=== PATIENT | male | born 1950 | race Caucasian/White ===

== ENCOUNTER 2016-07-12 19:07 | Emergency (ER) | payer MEDICAID ==
[~2016-07-12] VITALS: Ht 185.4 cm; Wt 103.4 kg
[2016-07-12 19:25] VITALS: BP 149/96
== END 2016-07-12 21:21 | disposition home or self-care (01) ==
LOC: ER 19:07
DX: M54.2 Cervicalgia (principal); M25.512 Pain in left shoulder; M54.9 Dorsalgia, unspecified; M25.511 Pain in right shoulder; E11.9 Type 2 diabetes mellitus without complications; I10 Essential (primary) hypertension; V89.2XXA Person injured in unspecified motor-vehicle accident, traffic, initial encounter; Y93.89 Activity, other specified; Y92.89 Other specified places as the place of occurrence of the external cause; Y99.9 Unspecified external cause status
CPT/HCPCS: 72100; 72125; 73030 ×2; 99284; A4606; Z7610

== ENCOUNTER 2016-10-14 20:42 | Emergency (ER) | payer MEDICAID, OTHER ==
[~2016-10-14] VITALS: Ht 177.8 cm; Wt 77.1 kg
[2016-10-14 21:15] VITALS: BP 127/75
--- NOTE | 2016-10-14 21:16 | NUR ---
bib self, cc: left knee pain and flu like symptoms, patient is verbally responsive, a/o x4, able to ambulate to bed, md at bedside upon arrival, will continue to monitor closely.
[2016-10-14 21:23] LABS: BASOPHILS # (AUTO) 0.1 /CMM (0.0-0.2); BASOPHILS % (AUTO) 0.9 % (0.0-2.0); EOSINOPHILS # (AUTO) 0.1 /CMM (0.0-0.7); EOSINOPHILS % (AUTO) 1.1 % (0.0-6.0); HEMATOCRIT 34 % (39-51); HEMOGLOBIN 10.8 g/dL (13.5-17.5); LYMPHOCYTES # (AUTO) 2.2 /CMM (0.8-4.8); LYMPHOCYTES % (AUTO) 20.8 % (20.0-44.0); MEAN CORPUSCULAR HEMOGLOBIN 23 PG (26.0-33.0); MEAN CORPUSCULAR HGB CONC 32 g/dl (31.0-36.0); MEAN CORPUSCULAR VOLUME 72 fL (80-96); MONOCYTES # (AUTO) 0.8 /CMM (0.1-1.30); MONOCYTES % (AUTO) 7.5 % (2.0-12.0); NEUTROPHILS # (AUTO) 7.4 /CMM (1.8-8.9); NEUTROPHILS % (AUTO) 69.7 % (43.0-81.0); PLATELET COUNT (AUTO) 464 /CMM (150-450); RDW COEFFICIENT OF VARIATION 19.4 (11.5-15.0); RED BLOOD CELL COUNT(AUTO) 4.65 MIL/uL (4.5-6.0); WHITE BLOOD COUNT (AUTO) 10.6 K/uL (4.3-11.0)
[2016-10-14] MEDS ORDERED: ACETAMINOPHEN ES 500 MG TABLET ONE (21:28)
[2016-10-14] MEDS ORDERED: ACETAMINOPHEN ES 500 MG TABLET PO ONE (21:30)
[2016-10-14 21:33] LABS: CALCIUM, SERUM 8.6 mg/dL (8.5-10.1); CREATININE 1.1 mg/dL (0.6-1.3); POTASSIUM 3.8 mmol/L (3.5-5.1)
[2016-10-14 21:40] LABS: ALBUMIN 3.6 g/dL (3.4-5.0); BILIRUBIN,TOTAL 0.6 mg/dL (0.2-1.0); PROTHROMBIN TIME 10.4 SECS (9.5-12.7); TOTAL PROTEIN, SERUM 7.6 g/dL (6.4-8.2)
[2016-10-14 21:42] LABS: TROPONIN I 0.019 ng/mL (0.00-0.056)
[2016-10-14] MEDS ORDERED: IV NS 0.9% 250 ML IV ONE (22:27)
[2016-10-14] MEDS ORDERED: IOHEXOL-300 100 ML VIAL IV ONE (22:27)
[2016-10-14] MEDS ORDERED: CT SWABBABLE VALVE TRANS SET 1 EA INFUS.SET MC ONE (22:27)
--- NOTE | 2016-10-14 23:11 | NUR ---
CALLED [facility] TO HAVE CT READ
--- NOTE | 2016-10-14 23:40 | NUR ---
IV removed. Catheter intact and site benign. Pressure and 4x4 applied to site. No bleeding noted.
--- NOTE | 2016-10-14 23:46 | NUR ---
PT NO LONGER WISHES TO WAIT FOR CT RESULTS. Patient does not wish to proceed with medical care recommended by Ruel BARGER. Patient given information related to possible complications, up to and including , which could occur as a result of leaving the hospital at this time. Patient verbalizes understanding of risks involved due to leaving against medical advice. Patient has signed AMA form.
== END 2016-10-14 23:49 | disposition home or self-care (01) ==
LOC: ER 20:48
DX: R42 Dizziness and giddiness (principal); G89.29 Other chronic pain; M79.601 Pain in right arm; I10 Essential (primary) hypertension; E11.9 Type 2 diabetes mellitus without complications; Z98.890 Other specified postprocedural states
CPT/HCPCS: 36415; 71010; 74160; 80053; 84484; 85025; 85730; 93005; 99285; A4606; J7050; Q9967; Z7610

== ENCOUNTER 2017-02-15 17:49 | Emergency (ER) | payer OTHER ==
[~2017-02-15] VITALS: Ht 185.4 cm; Wt 91.6 kg
--- NOTE | 2017-02-15 17:56 | NUR ---
ABDOMINAL PAIN X 1 WEEK; RUQ PAIN; HX OF ABDOMINAL SURGERIES 2 X - BOWEL RESECTION IN THE PAST; EPIGASTRIC TO RUQ PAIN 8/10
--- NOTE | 2017-02-15 18:10 | NUR ---
lac#[id number] iv access. blood sample collected sent to lab
--- NOTE | 2017-02-15 18:15 | NUR ---
urine sample collected sent to lab
[2017-02-15 18:16] LABS: APPEARANCE,URINE Clear (CLEAR); BILIRUBIN,URINE SMALL (NEGATIVE); BLOOD, URINE Negative Ery/uL (NEGATIVE); COLOR,URINE Yellow (YELLOW); KETONES,URINE Negative (NEGATIVE); LEUKOCYTE ESTERASE ,URINE Negative (NEGATIVE); NITRITE, URINE Negative (NEGATIVE); PROTEIN,URINE 30 mg/dl (NEGATIVE); UGLUCOSE Negative (NEGATIVE)
[2017-02-15 18:29] LABS: BASOPHILS # (AUTO) 0.5 /CMM (0.0-0.2); BASOPHILS % (AUTO) 4.2 % (0.0-2.0); EOSINOPHILS # (AUTO) 0.1 /CMM (0.0-0.7); EOSINOPHILS % (AUTO) 1.2 % (0.0-6.0); HEMATOCRIT 33 % (39-51); LYMPHOCYTES # (AUTO) 2.1 /CMM (0.8-4.8); LYMPHOCYTES % (AUTO) 18.6 % (20.0-44.0); MEAN CORPUSCULAR HEMOGLOBIN 22 PG (26.0-33.0); MEAN CORPUSCULAR HGB CONC 31 g/dl (31.0-36.0); MEAN CORPUSCULAR VOLUME 72 fL (80-96); MONOCYTES # (AUTO) 0.7 /CMM (0.1-1.30); MONOCYTES % (AUTO) 6.7 % (2.0-12.0); NEUTROPHILS # (AUTO) 7.7 /CMM (1.8-8.9); NEUTROPHILS % (AUTO) 69.3 % (43.0-81.0); PLATELET COUNT (AUTO) 601 /CMM (150-450); RDW COEFFICIENT OF VARIATION 20.2 (11.5-15.0); RED BLOOD CELL COUNT(AUTO) 4.54 MIL/uL (4.5-6.0); WHITE BLOOD COUNT (AUTO) 11.1 K/uL (4.3-11.0)
[2017-02-15] MEDS ORDERED: MORPHINE SULFATE INJ 2 MG/ML DISP.SYRIN IV ONE (18:30)
[2017-02-15] MEDS ORDERED: ONDANSETRON HCL/PF - ER 4 MG/2 ML VIAL IV ONE (18:30)
[2017-02-15 18:34] LABS: CALCIUM, SERUM 8.7 mg/dL (8.5-10.1); CREATININE 0.8 mg/dL (0.6-1.3); POTASSIUM 4.1 mmol/L (3.5-5.1)
--- NOTE | 2017-02-15 18:35 | NUR ---
pt taken to ct
[2017-02-15 18:37] LABS: INR 0.98 (0.87-1.13); PROTHROMBIN TIME 10.2 SECS (9.5-12.7)
[2017-02-15 18:39] LABS: BACTERIA,URINE None seen /HPF (None Seen); RBC,URINE NONE SEEN /HPF (0-2); SQUAMOUS EPITHELIAL CELL,UR Rare /HPF (None Seen); WBC,URINE 0-2 /HPF (0-3)
[2017-02-15 18:39] LABS: ALBUMIN 3.3 g/dL (3.4-5.0); BILIRUBIN,DIRECT 0.1 mg/dL (0.0-0.2); BILIRUBIN,TOTAL 0.6 mg/dL (0.2-1.0); TOTAL PROTEIN, SERUM 7.9 g/dL (6.4-8.2)
[2017-02-15 18:40] LABS: MUCUS,URINE Few /LPF (None Seen)
[2017-02-15] MEDS ORDERED: MORPHINE SULFATE INJ 4 MG/ML DISP.SYRIN ONE (18:40)
[2017-02-15] MEDS ORDERED: ONDANSETRON HCL/PF 4 MG/2 ML VIAL ONE (18:40)
--- NOTE | 2017-02-15 19:14 | NUR ---
report given to carolyn for bogdan
[2017-02-15 19:49] LABS: BAND % (MANUAL) 2 % (0.0-5.0); NEUTROPHILS % (MANUAL) 81 (42-76)
[2017-02-15 19:50] LABS: EOSINOPHILS % (MANUAL) 1 % (0-4); LYMPHOCYTES % (MANUAL) 12 % (16-48); MONOCYTES % (MANUAL) 4 % (0-11.0)
[2017-02-15] MEDS ORDERED: HYDROCODONE/APAP 10/325MG 1 EA TABLET ONE (21:21)
[2017-02-15 21:26] VITALS: BP 158/98
--- NOTE | 2017-02-15 21:26 | NUR ---
IV removed. Catheter intact and site benign. Pressure and 4x4 applied to site. No bleeding noted. Patient discharged to home in stable condition. Written and verbal after care instructions given. Patient verbalizes understanding of instruction. Patient is ambulatory with steady gait. Instructed not to drive. No further complaints.
[2017-02-15] MEDS ORDERED: HYDROCODONE/APAP 10/325MG 1 EA TABLET PO ONE (21:30)
== END 2017-02-15 21:27 | disposition home or self-care (01) ==
LOC: ER 17:53
DX: R10.9 Unspecified abdominal pain (principal); D64.9 Anemia, unspecified; E11.9 Type 2 diabetes mellitus without complications; G47.00 Insomnia, unspecified; I10 Essential (primary) hypertension; K43.9 Ventral hernia without obstruction or gangrene; K44.9 Diaphragmatic hernia without obstruction or gangrene; K57.30 Diverticulosis of large intestine without perforation or abscess without bleeding
CPT/HCPCS: 36415; 71010; 74176; 80048; 80076; 81001; 83690; 85025; 85730; 96374; 96375; 99285; A4606; J2270; J2405 ×2; Z7610; 81000-TC